=== PATIENT | male | born 1970 | race Hispanic/Latino ===

== ENCOUNTER → 2019-10-19 | Outpatient (CLI) | payer OTHER ==
[~2019-10-19] MED LIST: CHOL50004 PO; DILT240C94 PO; FISH OIL OMEGA1 EACH PO; LISI-613 PO; SIMV40TA59 PO
== END | disposition home or self-care (01) ==
LOC: OIH 15:07
PROVIDERS: ATTEND Internal Medicine Cardiovascular Disease
DX: Z13.6 Encounter for screening for cardiovascular disorders (principal)
CPT/HCPCS: 75571

== ENCOUNTER 2023-02-10 13:15 | Observation (INO) | payer OTHER ==
[~2023-02-10] VITALS: Ht 180.3 cm; Wt 131.1 kg
[~2023-02-10 13:15] MED LIST changes: +DILT240C81 PO; -DILT240C94 PO; -LISI-613 PO; +LISI20TA24 PO
[2023-02-10 13:56] LABS: HEMATOCRIT 43.1 % (42-54); MEAN CORPUSCULAR HEMOGLOBIN 29.5 pg (27.0-33.0); MEAN CORPUSCULAR HGB CONC 32.3 g/dL (32.0-36.0); MEAN CORPUSCULAR VOLUME 91.5 fL (79-99); RED BLOOD CELL COUNT(AUTO) 4.71 MIL/uL (4.50-6.20); RED CELL DISTRIBUTION WIDTH 13.5 % (11.0-15.5); WHITE BLOOD COUNT (AUTO) 9.5 K/uL (4.8-10.8)
[2023-02-10] MEDS ORDERED: ASPIRIN 325MG TAB PO ONE (14:00)
[2023-02-10 14:09] LABS: CREATININE 1.2 mg/dL (0.5-1.5); POTASSIUM 4.5 mmol/L (3.5-5.1)
[2023-02-10 14:15] LABS: ALBUMIN 3.6 g/dL (3.5-5.0); BILIRUBIN,TOTAL 0.6 mg/dL (0.2-1.0); TOTAL PROTEIN, SERUM 7.9 g/dL (6.0-8.3)
[2023-02-10] MEDS ORDERED: 0.9%NACL 1000ML 1,000 ML IV ONE (14:30)
[2023-02-10 14:39] LABS: APPEARANCE,URINE CLEAR (CLEAR); BILIRUBIN,URINE NEGATIVE (NEGATIVE); COLOR,URINE YELLOW (YELLOW); GLUCOSE, URINE (UA) NEGATIVE (NEGATIVE); KETONES,URINE NEGATIVE (NEGATIVE); LEUKOCYTE ESTERASE ,URINE NEGATIVE Leu/uL (NEGATIVE); NITRATE,URINE NEGATIVE (NEGATIVE); OCCULT BLOOD,URINE NEGATIVE (NEGATIVE); PH,URINE 6.5 (5.0-8.0); PROTEIN,URINE NEGATIVE (NEGATIVE); UROBILINOGEN,URINE 0.2 mg/dL (0.2-1.0)
[2023-02-10 14:49] LABS: ADD UA MICROSCOPIC NO
[2023-02-10] MEDS: 0.9%NACL 1000ML 1,000 ML IV SCH (15:39)
[2023-02-10] MEDS ORDERED: IOHEXOL 350 MG/ML 100ML INFUS..BTL IV ONE (15:39)
[2023-02-10 16:04] LABS: INR < 0.93 (0.85-1.15)
[2023-02-10 16:05] LABS: PARTIAL THROMBOPLASTIN TIME 28.8 SEC (26.3-35.5)
[2023-02-10 16:09] LABS: HEMOGLOBIN A1C 6.3 % (4.0-6.0)
[2023-02-10 16:15] LABS: AMPHET/METH SCREEN,URINE NEGATIVE (NEGATIVE); BARBITURATE SCREEN, URINE NEGATIVE (NEGATIVE); BENZODIAZEPINES SCREEN,URINE NEGATIVE (NEGATIVE); CANNABINOID SCREEN,URINE NEGATIVE (NEGATIVE); COCAINE SCREEN,URINE NEGATIVE (NEGATIVE); OPIATE SCREEN,URINE NEGATIVE (NEGATIVE); PHENCYCLIDINE SCREEN,URINE NEGATIVE (NEGATIVE)
[2023-02-10 16:36] LABS: THYROID STIMULATING HORMONE 3.81 uIU/mL (0.36-3.74)
[2023-02-10] MEDS ORDERED: CYANOCOBALAMIN (VITAMIN B-12) 1,000 MCG TABLET PO ONE (18:00)
[2023-02-10] MEDS ORDERED: ATORVASTATIN 40 MG TABLET PO SCH (21:00)
[2023-02-10] MEDS: INSULIN HUMULIN R 100 UNIT/ML 3ML SQ SCH (21:00)
[2023-02-10 21:45] VITALS: BP 141/60; PULSE 63; RESP 20; O2SAT 98
[2023-02-10] MEDS: FISH OIL 1000 MG/CAP PO SCH (22:04)
[2023-02-10 23:33] VITALS: BP 128/73; PULSE 58; RESP 20
[2023-02-10] MEDS ORDERED: SPIR25TA6 PO (23:40)
[2023-02-10] MEDS ORDERED: PRAV20TA4 PO (23:40)
[2023-02-10] MEDS ORDERED: OLME40TA18 PO (23:40)
[2023-02-10] MEDS ORDERED: DILT300C42 PO (23:40)
[2023-02-10] MEDS ORDERED: GLIM2TAB30 PO (23:40)
[2023-02-10] MEDS ORDERED: PIOG30TA70 PO (23:40)
[2023-02-10 23:42] VITALS: PULSE 60; RESP 19; RESP 20; O2SAT 97; O2SAT 99
[2023-02-11] VITALS (12 sets, daily range): BP systolic 123–138; BP diastolic 68–85; PULSE 52–78; RESP 18–20; O2SAT 96–99
[2023-02-11 04:43] LABS: BASOPHILS # (AUTO) 0.07 K/uL (0.00-0.20); BASOPHILS % (AUTO) 0.8 % (0.0-5.0); EOSINOPHILS # (AUTO) 0.12 K/uL (0.00-0.70); EOSINOPHILS % (AUTO) 1.4 % (0.0-8.0); HEMATOCRIT 40.6 % (42-54); IMMATURE GRANULOCYTE ABSOLUTE 0.06 K/uL (0-1); LYMPHOCYTES # (AUTO) 2.4 K/uL (1.0-4.8); LYMPHOCYTES % (AUTO) 27.6 % (21.0-51.0); MEAN CORPUSCULAR HEMOGLOBIN 29.2 pg (27.0-33.0); MEAN CORPUSCULAR HGB CONC 31.5 g/dL (32.0-36.0); MEAN CORPUSCULAR VOLUME 92.5 fL (79-99); MONOCYTES % (AUTO) 11.2 % (3.0-13.0); NEUTROPHILS # (AUTO) 5.2 K/uL (1.8-7.7); NEUTROPHILS % (AUTO) 58.3 % (40.0-77.0); PLATELET COUNT (AUTO) 220 K/uL (130-400); RED BLOOD CELL COUNT(AUTO) 4.39 MIL/uL (4.50-6.20); RED CELL DISTRIBUTION WIDTH 13.7 % (11.0-15.5); WHITE BLOOD COUNT (AUTO) 8.8 K/uL (4.8-10.8)
[2023-02-11 05:02] LABS: ALBUMIN 3.4 g/dL (3.5-5.0); BILIRUBIN,TOTAL 0.6 mg/dL (0.2-1.0); CREATININE 1.1 mg/dL (0.5-1.5); POTASSIUM 3.6 mmol/L (3.5-5.1); TOTAL PROTEIN, SERUM 7.4 g/dL (6.0-8.3)
[2023-02-11] MEDS ORDERED: MAGNESIUM 2GM PREMIX 50ML 50 ML IV SCH (06:00)
[2023-02-11] MEDS ORDERED: POTASSIUM CHLORIDE 10% ELIXIR 20 MEQ/15 ML UDCUP PO PRN (06:00)
[2023-02-11] MEDS ORDERED: KCL 20 MEQ ERTAB PO PRN (06:00)
[2023-02-11] MEDS: INSULIN HUMULIN R 100 UNIT/ML 3ML SQ SCH ×4 (06:49→19:33)
[2023-02-11] MEDS ORDERED: NON-FORMULARY MEDICATION 1 EACH (Olmesartan Medoxomil 40 MG) PO SCH (09:00)
[2023-02-11] MEDS ORDERED: DILTIAZEM HCL 300 MG PO SCH (09:00)
[2023-02-11] MEDS: DILTIAZEM 120MG SR CAP PO SCH (10:45)
[2023-02-11] MEDS: FISH OIL 1000 MG/CAP PO SCH ×2 (10:46→20:42)
[2023-02-11] MEDS: PANTOPRAZOLE 40 MG TAB DR PO SCH (10:46)
[2023-02-11] MEDS: ASPIRIN 81 MG EC TAB PO SCH (10:47)
[2023-02-11] MEDS: MULTIVITAMIN TABLET PO SCH (10:47)
[2023-02-11] MEDS: LOSARTAN 100 MG TABLET PO SCH (10:48)
[2023-02-11] MEDS: 0.9%NACL 1000ML 1,000 ML IV SCH (11:35)
[2023-02-11] MEDS: CLOPIDOGREL 75MG TAB PO SCH (14:09)
[2023-02-12 03:47] VITALS: BP 139/93; PULSE 80; RESP 18
[2023-02-12] MEDS: INSULIN HUMULIN R 100 UNIT/ML 3ML SQ SCH ×2 (05:40→11:30)
[2023-02-12 06:51] VITALS: PULSE 64; RESP 18; O2SAT 97
[2023-02-12 07:30] VITALS: BP 108/53; PULSE 74; RESP 16
[2023-02-12 08:00] VITALS: O2SAT 95
[2023-02-12] MEDS: FISH OIL 1000 MG/CAP PO SCH (09:41)
[2023-02-12] MEDS: MULTIVITAMIN TABLET PO SCH (09:41)
[2023-02-12] MEDS: ASPIRIN 81 MG EC TAB PO SCH (09:41)
[2023-02-12] MEDS: DILTIAZEM 120MG SR CAP PO SCH (09:42)
[2023-02-12] MEDS: PANTOPRAZOLE 40 MG TAB DR PO SCH (09:42)
[2023-02-12] MEDS: CLOPIDOGREL 75MG TAB PO SCH (09:43)
[2023-02-12] MEDS: LOSARTAN 100 MG TABLET PO SCH (09:43)
[2023-02-12 12:00] VITALS: BP 144/77; PULSE 87; RESP 16
[2023-02-12] MEDS ORDERED: CLOP-31 PO (14:19)
[2023-02-12] MEDS ORDERED: LOSA100T3 PO (14:19)
[2023-02-12] MEDS ORDERED: AEC81 PO (14:19)
== END 2023-02-12 15:30 | disposition home or self-care (01) ==
LOC: EDH 13:15 → EDHIP 17:22 → 4CH 21:40
PROVIDERS: ADMIT Internal Medicine; ATTEND Internal Medicine
DX: G45.9 Transient cerebral ischemic attack, unspecified (principal); I10 Essential (primary) hypertension; E11.9 Type 2 diabetes mellitus without complications; I48.91 Unspecified atrial fibrillation; G51.0 Bell's palsy; G47.33 Obstructive sleep apnea (adult) (pediatric); I47.1 Supraventricular tachycardia; E78.5 Hyperlipidemia, unspecified; I34.0 Nonrheumatic mitral (valve) insufficiency; E66.9 Obesity, unspecified; Z79.82 Long term (current) use of aspirin; Z86.73 Personal history of transient ischemic attack (TIA), and cerebral infarction without residual deficits; Z79.899 Other long term (current) drug therapy; Z68.41 Body mass index [BMI] 40.0-44.9, adult
CPT/HCPCS: 96360; 96361 ×2; 83036; 84443; 84484; 80061; 80053 ×2; 83880; 80305; 85027; 85610; 85730; 82948 ×7; 82607; 82746; 81003; 36415 ×2; 71045; 70450; 70496; 70498; 70551; 99291; 93005; 83735; 85025; 93306; G0378 ×45; J7030; Q9967

== ENCOUNTER 2023-10-22 00:48 | Emergency (ER) | payer OTHER ==
[~2023-10-22] VITALS: Ht 180.3 cm; Wt 136.1 kg
[~2023-10-22 00:48] MED LIST changes: +AEC81 PO; +CLOP-31 PO; -FISH OIL OMEGA1 EACH PO; +GLIM2TAB30 PO; -LISI20TA24 PO; +LOSA-420 PO; +OLME40TA18 PO; +PIOG30TA70 PO; +PRAV20TA4 PO; -SIMV40TA59 PO; +SPIR25TA6 PO
[2023-10-22 01:26] LABS: BASOPHILS # (AUTO) 0.05 K/uL (0.00-0.20); BASOPHILS % (AUTO) 0.6 % (0.0-5.0); EOSINOPHILS # (AUTO) 0.11 K/uL (0.00-0.70); EOSINOPHILS % (AUTO) 1.3 % (0.0-8.0); HEMATOCRIT 41.7 % (42-54); IMMATURE GRANULOCYTE ABSOLUTE 0.08 K/uL (0-1); LYMPHOCYTES # (AUTO) 1.9 K/uL (1.0-4.8); LYMPHOCYTES % (AUTO) 22.8 % (21.0-51.0); MEAN CORPUSCULAR HEMOGLOBIN 30.6 pg (27.0-33.0); MEAN CORPUSCULAR HGB CONC 33.1 g/dL (32.0-36.0); MEAN CORPUSCULAR VOLUME 92.5 fL (79-99); MONOCYTES # (AUTO) 0.6 K/uL (0.1-1.0); MONOCYTES % (AUTO) 7.4 % (3.0-13.0); NEUTROPHILS # (AUTO) 5.7 K/uL (1.8-7.7); PLATELET COUNT (AUTO) 215 K/uL (130-400); RED BLOOD CELL COUNT(AUTO) 4.51 MIL/uL (4.50-6.20); RED CELL DISTRIBUTION WIDTH 14.4 % (11.0-15.5); WHITE BLOOD COUNT (AUTO) 8.5 K/uL (4.8-10.8)
[2023-10-22 01:35] LABS: CREATININE 1.3 mg/dL (0.5-1.3); POTASSIUM 3.8 mmol/L (3.5-5.1)
[2023-10-22 01:40] LABS: ALBUMIN 3.7 g/dL (3.5-5.0); BILIRUBIN,TOTAL 0.8 mg/dL (0.2-1.0); TOTAL PROTEIN, SERUM 7.7 g/dL (6.0-8.3)
[2023-10-22 01:54] VITALS: BP 142/88; PULSE 58; RESP 18; O2SAT 98
[2023-10-22 01:59] LABS: B-TYPE NATRIURETIC PEPTIDE 8 pg/mL (0-100)
== END 2023-10-22 03:29 | disposition home or self-care (01) ==
LOC: EDH 00:48
DX: R07.89 Other chest pain (principal); R20.0 Anesthesia of skin; I10 Essential (primary) hypertension; E11.9 Type 2 diabetes mellitus without complications; E78.00 Pure hypercholesterolemia, unspecified; Z79.82 Long term (current) use of aspirin; Z79.899 Other long term (current) drug therapy
CPT/HCPCS: 36415; 71045; 80053; 83880; 84484; 85025; 93005

== ENCOUNTER → 2024-07-08 | Outpatient (CLI) | payer OTHER ==
[2024-07-08 16:36] LABS: CHOLESTEROL 163 mg/dL (<200); HDL CHOLESTEROL 46 mg/dL (29-71); LDL DIRECT 95 mg/dL (0-99); TRIGLYCERIDES 265 mg/dL (30-200)
== END | disposition home or self-care (01) ==
LOC: LAB 11:44
PROVIDERS: ATTEND Internal Medicine Cardiovascular Disease
DX: I10 Essential (primary) hypertension (principal); E78.2 Mixed hyperlipidemia
CPT/HCPCS: 36415; 80061

== ENCOUNTER → 2024-07-15 | Outpatient (CLI) | payer OTHER ==
--- NOTE | 2024-07-15 09:28 | HMCIMG ---
CT calcium scoring Clinical Information: [facility] SCREENING Comparison: None CT Dose Index (CTDI): 13.30 mGy Dose Length Product (DLP): 186.18 total mGy-cm Findings: Calcium score 42.6. Mild calcification. The CT scan is not a complete chest CT. Covered portion is reviewed for incidental findings. No incidental findings seen. IMPRESSION: Calcium score as above. Calcium score reference stable: 0: No identifiable calcification 1- 10: Minimal identifiable calcification 11-100: Mild calcification 101- 400: Moderate calcification 401 and above: Significant calcification Automated exposure control and adequate statistical iterative reconstructions were utilized as dose reduction techniques.
== END | disposition home or self-care (01) ==
LOC: RAH 07:38
PROVIDERS: ATTEND Internal Medicine Cardiovascular Disease
DX: Z13.6 Encounter for screening for cardiovascular disorders (principal)
CPT/HCPCS: 75571